=== PATIENT | male | born 1955 | race Caucasian/White ===

== ENCOUNTER 2016-04-07 08:01 | Emergency (ER) | payer OTHER ==
[2016-04-07 08:14] VITALS: BP 134/74
--- NOTE | 2016-04-07 08:46 | UC ---
Respiratory Complaint HPI - HPI Summary HPI Summary: Laryngitis and cough for 3 days no fever - History of Current Complaint Chief Complaint: UCGeneralIllness Stated Complaint: HEAD/CHEST CONGESTION COUGH Time Seen by Provider: 04/07/16 08:45 Hx Obtained From: Patient Onset/Duration: Sudden Onset, Lasting Days - 3, Still Present Timing: Constant Severity Initially: Moderate Severity Currently: Moderate - up all night coughing Character: Cough: Nonproductive Aggravating Factors: Nothing Alleviating Factors: Nothing Associated Signs And Symptoms: Positive: URI, Nasal Congestion - Allergies/Home Medications Allergies/Adverse Reactions: Allergies Allergy/AdvReac Type Severity Reaction Status Date / Time No Known Allergies Allergy Verified 09/24/15 11:13 PMH/Surg Hx/FS Hx/Imm Hx Previously Healthy: No Cardiovascular History Of: Reports: Cardiac Disorders - Dilated Aorta, Hypertension - Surgical History Surgical History: Yes Surgery Procedure, Year, and Place: sx for pyloric stenosis as a child. hernia repair as a child. appendectomy - Family History Known Family History: Positive: Cardiac Disease, Hypertension - Social History Occupation: Employed Full-time Lives: With Family Alcohol Use: Daily Alcohol Amount: 4 drinks a day Substance Use Type: None Smoking Status (MU): Never Smoked Tobacco Amount Used/How Often: SOCIAL SMOKER Have You Smoked in the Last Year: No When Did the Patient Quit Smoking/Using Tobacco: 2012 - Immunization History Most Recent Influenza Vaccination: 2016 Most Recent Tetanus Shot: 09/20/15 Most Recent Pneumonia Vaccination: 2015 Review of Systems Constitutional: Negative Skin: Negative Eyes: Negative ENT: Negative Respiratory: Cough Cardiovascular: Negative Gastrointestinal: Negative Genitourinary: Negative Motor: Negative Neurovascular: Negative Musculoskeletal: Negative Neurological: Negative Psychological: Negative All Other Systems Reviewed And Are Negative: Yes Physical Exam Triage Information Reviewed: Yes Appearance: Well-Appearing, No Pain Distress, Well-Nourished Vital Signs: Initial Vital Signs Temp 98.2 F 04/07/16 08:07 Pulse 81 04/07/16 08:07 Resp 20 04/07/16 08:07 BP 134/74 04/07/16 08:07 Pulse Ox 96 04/07/16 08:07 Vital Signs Reviewed: Yes Eye Exam: Normal Eyes: Positive: Conjunctiva Clear ENT Exam: Normal ENT: Positive: Normal ENT inspection, Hearing grossly normal, Pharynx normal, TMs normal. Negative: Nasal congestion, Nasal drainage, Tonsillar swelling, Tonsillar exudate, Trismus, Muffled/hoarse voice Dental Exam: Normal Neck exam: Normal Neck: Positive: Supple, Nontender, No Lymphadenopathy Respiratory Exam: Other Respiratory: Positive: Chest non-tender, No respiratory distress, No accessory muscle use, Wheezing - expiratory. Negative: Respiratory distress, Accessory muscle use Cardiovascular Exam: Normal Cardiovascular: Positive: RRR, No Murmur, Pulses Normal, Brisk Capillary Refill Musculoskeletal Exam: Normal Musculoskeletal: Positive: Strength Intact, ROM Intact, No Edema Neurological Exam: Normal Neurological: Positive: Alert, Muscle Tone Normal Psychological Exam: Normal Skin Exam: Normal UC Diagnostic Evaluation - Laboratory O2 Sat by Pulse Oximetry: 96 Respiratory Course/Dx - Course Course Of Treatment: albuterol, prednisone, robitussin and codiene, zithromax only if sx worsen or fail to improve increase fluids, follow with pcp re-check prn - Differential Dx/Diagnosis Differential Diagnosis/HQI/PQRI: Asthma, Bronchitis, Lower Resp Infection, Sinusitis, Tuberculosis Provider Diagnoses: Cough with bronchospasm, viral URI Discharge - Discharge Plan Condition: Stable Disposition: HOME Prescriptions: Albuterol HFA INHALER* [Ventolin HFA Inhaler*] 2 puff INH Q6H PRN #1 mdi PRN Reason: cough Azithromycin TAB* [Zithromax TAB (Z-MADHAVI) 250 mg #6 tabs] 2 tab PO .TODAY, THEN 1 DAILY #1 madhavi Spacer/Aerosol-Holding Chamber [Aerochamber Plus] 1 mis .SEE ORDER SEE INSTRUCTIONS #1 mis guaiFENesin/CODIEN 100MG-10MG* [Robitussin AC 100Mg-10Mg*] 5 - 10 ml PO Q4H PRN #120 udc MDD 60 PRN Reason: cough predniSONE TAB* [Deltasone TAB*] 10 mg PO DAILY #20 tab Patient Education Materials: How to Use a Metered-Dose Inhaler (ED), Upper Respiratory Infection (ED), Viral Syndrome (ED), Bronchospasm (ED) Referrals: Noe Allen MD [Primary Care Provider] - If Needed
== END 2016-04-07 09:06 | disposition home or self-care (01) ==
LOC: UCEAST 08:01
DX: R05 Cough (principal); J98.01 Acute bronchospasm; J06.9 Acute upper respiratory infection, unspecified; F10.99 Alcohol use, unspecified with unspecified alcohol-induced disorder; Z72.0 Tobacco use
CPT/HCPCS: 99201; G0463

== ENCOUNTER 2018-05-28 20:22 | Emergency (ER) | payer OTHER ==
[2018-05-28 20:55] VITALS: BP 175/95
--- OUTSIDE RECORDS SUMMARY | 2018-05-28 21:00 | XMS REPORT | Continuity of Care Document ---
:1955 External Reference #:[id number] Author Name Shelia Howell Care Team Providers Name Role Phone Noe Allen MD Primary Care Physician Unavailable Payers Date Identification Numbers Payment Provider Subscriber Policy Number: [id number] [employer] Name: [id number] [id number] PayID: [id number] [place] [address] Expires: 2016 Policy Number: [employer] [facility] Tomy Arrington [id number] Group Number: [id number] [address] PayID: [id number] [place] [address] Advance Directives Description No Information Available Problems Date Description Provider Status Onset: 04/28/2015 Essential hypertension Brinda Levine M.D. Active Onset: 02/04/2012 Syncope and collapse Brinda Levine M.D. Active Onset: 07/11/2017 Obstructive sleep apnea syndrome Kera Ashby DNP, MORENITA, Active [employer] Note: CPAP since June 2017 Onset: 02/04/2012 Electrocardiogram abnormal Brinda Levine M.D. Active Onset: 02/04/2012 Hyperlipidemia Brinda Levine M.D. Active Onset: 12/24/2013 Aortic aneurysm Brinda Levine M.D. Active Note: sees Dr Levine annually as of 2017 Onset: 04/24/2017 Localized, primary osteoarthritis Sai Hawkins MD Active Onset: 07/11/2017 Body mass index 30+ - obesity Kera Ashby DNP, RN, Active [employer] Family History Date Family Member(s) Observation Comments Father heart problems HTN Father due to CHF () Mother Cancer, Breast Mother due to Pancreatic () Cancer Children 2 alive and well Siblings 3 brothers one sister one brother with hypercholesterol and CVA, another brother with MD and CABG +smoker at age of 58, 3rd brother is healthy. Sister bilateral breast cancer. 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[employer]) Tobacco Use Start: Unknown End: Former Cigarette Smoker Unknown Smoking Status Reviewed: 05/06/18 Former Cigarette Smoker ETOH Use Consumes liquor once 200ml of Vodka daily daily Tobacco Use Start: Unknown End: Patient is a former 1-2 years social Unknown smoker Recreational Drug Use Denies Drug Use Exercise Type/Frequency Exercises regularly 30 minutes intense rowing daily 30 minutes of cardio daily Allergies, Adverse Reactions, Alerts Description No Known Drug Allergies Medications Medication Date Status Form Strength Qnty SIG Indications Ordering Provider Lisinopril/Hyd 00// Active Tablets 10-12.5mg 90tab 1 po qd Unknown rochlorothiazi 0000 s de Aspirin / Active Chewtabs 81mg 30uni 1 po qd Unknown Childrens 0000 ts Fish Oil // Active Capsules 1000mg 1 po qd Unknown 0000 Cialis // Active Tablets 2.5mg 30tab po qd (prn) Unknown 0000 s Travatan Z 00/ Active Solution 0.004% 1 gtt right Unknown 0000 eye daily Timolol 00/00/ Active Solution 1 drop in Unknown Maleate 0000 right eye daily Vitamin B-12 00/00/ Active Tablets 500mcg 1 by mouth Unknown 0000 every day Natural Vitamin D High 00/00/ Active Capsules 1000Unit 1 tab po Unknown Potency 0000 daily Atorvastatin / Active Tablets 80mg 1 by mouth Unknown Calcium 0000 every day Suprep Bowel 01/14/ Hx Solution 17.5-3.13 1unit take Madi Ashraf Prep Kit 2017 - -1.6GM/17 s according to Diony 05/05/ 7ML your MD 2019 physician's instructions the day before your procedure. split the dose as directed. Naproxen 04/24/ Hx Tablets 500mg 60tab 1 tablet with M17.11 Sai 2017 - s food by mouth F 07/10/ twice a day Ross 2017 as needed Naproxen 04/01/ Hx Tablets 500mg 90tab 1 po bid prn M75.42 Sai 2016 - s pain F 03/25/ Ross 2017 MD Basilio / Hx Tablets 2.5mg 30tab 1 po qd Unknown 0000 - s 2012 Simvastatin / Hx Tablets 80mg 30tab 1 po qhs Unknown 0000 - s 2017 Potassium / Hx Capsules 8Meq 90cap 1 tab by Other Chloride ER 0000 - ER s mouth every Ordering Provider 2016 Medications Administered in Office Medication Date Status Form Strength Qnty SIG Indications Ordering Provider Depomedrol Administered Injection Iasmar 40MG 018 ROSSANA Gomes Depomedrol Administered Injection Sai F 40MG 018 MD Ross Immunizations Description No Information Available Vital Signs Date Vital Result Comment 05/06/2018 9:37am Height 75 inches 6'3" Weight 260.50 lb Heart Rate 70 /min BP Systolic Sitting 120 mmHg Rue large cuff BP Diastolic Sitting 76 mmHg Rue large cuff Respiratory Rate 18 /min O2 % BldC Oximetry 96 % On Ra BMI (Body Mass Index) 32.6 kg/m2 01/29/2018 9:57am Height 75 inches 6'3" Weight 275.00 lb BP Systolic 134 mmHg BP Diastolic 76 mmHg Respiratory Rate 17 /min Pain Level 4 BMI (Body Mass Index) 34.4 kg/m2 01/09/2018 8:57am Height 75 inches 6'3" Weight 284.25 lb Heart Rate 56 /min BP Systolic 139 mmHg BP Diastolic 81 mmHg Body Temperature 98.6 F Pain Level 0 O2 % BldC Oximetry 95 % BMI (Body Mass Index) 35.5 kg/m2 12/03/2017 3:09pm Height 75 inches 6'3" Weight 289.00 lb W/ Shoes Heart Rate 66 /min BP Systolic Sitting 130 mmHg Lue Large Cuff BP Diastolic Sitting 80 mmHg Lue Large Cuff BMI (Body Mass Index) 36.1 kg/m2 Ejection Fraction 55-60% ECHO 11/10/17 10/21/2017 9:55am Height 75 inches 6'3" Weight 294.38 lb Heart Rate 60 /min BP Systolic Sitting 122 mmHg Rue large cuff BP Diastolic Sitting 76 mmHg Rue large cuff Respiratory Rate 12 /min O2 % BldC Oximetry 96 % BMI (Body Mass Index) 36.8 kg/m2 07/11/2017 9:54am Height 75 inches 6'3" Weight 312.50 lb Heart Rate 70 /min BP Systolic Sitting 138 mmHg Lue large cuff BP Diastolic Sitting 92 mmHg Lue large cuff Respiratory Rate 18 /min O2 % BldC Oximetry 96 % On Ra BMI (Body Mass Index) 39.1 kg/m2 04/28/2017 12:35pm Height 75 inches 6'3" Weight 337.00 lb Heart Rate 80 /min BP Systolic Sitting 130 mmHg BP Diastolic Sitting 86 mmHg Respiratory Rate 20 /min O2 % BldC Oximetry 97 % BMI (Body Mass Index) 42.1 kg/m2 Neck Circumference in inches 18.5 04/24/2017 1:36pm Height 75 inches 6'3" Weight 330.00 lb BP Systolic 116 mmHg BP Diastolic 70 mmHg Respiratory Rate 18 /min Pain Level 5 BMI (Body Mass Index) 41.2 kg/m2 03/26/2017 1:46pm Height 75 inches 6'3" Weight 341.25 lb with shoes Heart Rate 106 /min BP Systolic Sitting 138 mmHg LA, l cuff BP Diastolic Sitting 82 mmHg LA, l cuff BMI (Body Mass Index) 42.6 kg/m2 Ejection Fraction 55%-60% echo 03/14/17 06/12/2016 2:43pm Height 75 inches 6'3" Weight 323.25 lb with shoes Heart Rate 78 /min BP Systolic Sitting 122 mmHg LA lrg cuff BP Diastolic Sitting 86 mmHg LA lrg cuff BMI (Body Mass Index) 40.4 kg/m2 Ejection Fraction 60% -65% echo 10/19/15 04/01/2016 10:30am Height 75 inches 6'3" Weight 316.00 lb Heart Rate 82 /min BP Systolic 124 mmHg BP Diastolic 76 mmHg Pain Level 0 BMI (Body Mass Index) 39.5 kg/m2 11/22/2015 1:58pm Height 75 inches 6'3" Weight 316.25 lb without shoes Heart Rate 88 /min BP Systolic Sitting 128 mmHg LA lg cuff BP Diastolic Sitting 80 mmHg LA lg cuff Respiratory Rate 17 /min BMI (Body Mass Index) 39.5 kg/m2 Ejection Fraction 60-65% date 10/19/15 ECHO 04/28/2015 3:49pm Height 75 inches 6'3" Heart Rate 72 /min BP Systolic Sitting 118 mmHg LA, large BP Diastolic Sitting 80 mmHg LA, large Ejection Fraction 55%-60% 08/19/14 08/03/2014 3:42pm Height 75 inches 6'3" Weight 330.00 lb with shoes Heart Rate 74 /min BP Systolic Sitting 130 mmHg LA, large BP Diastolic Sitting 90 mmHg LA, large BMI (Body Mass Index) 41.2 kg/m2 Ejection Fraction 55%-60% 01/31/14 echo 12/24/2013 10:20am Height 75 inches 6'3" Weight 335.50 lb Heart Rate 80 /min BP Systolic 142 mmHg LA large cuff BP Diastolic 72 mmHg LA large cuff BMI (Body Mass Index) 41.9 kg/m2 05/14/2013 2:31pm Height 75 inches 6'3" Weight 331.00 lb Heart Rate 80 /min BP Systolic Sitting 124 mmHg BP Diastolic Sitting 74 mmHg BMI (Body Mass Index) 41.4 kg/m2 07/17/2012 9:12am Height 75 inches 6'3" Weight 328.00 lb Heart Rate 88 /min BP Systolic Sitting 148 mmHg BP Diastolic Sitting 80 mmHg Respiratory Rate 16 /min BMI (Body Mass Index) 41.0 kg/m2 06/12/2012 10:10am Height 75 inches 6'3" Weight 326.00 lb Heart Rate 82 /min BP Systolic 112 mmHg BP Diastolic 70 mmHg BMI (Body Mass Index) 40.7 kg/m2 04/27/2012 10:28am Height 75 inches 6'3" Weight 325.00 lb Heart Rate 72 /min BP Systolic Sitting 150 mmHg BP Diastolic Sitting 90 mmHg Respiratory Rate 20 /min BMI (Body Mass Index) 40.6 kg/m2 02/04/2012 8:35am Height 75 inches 6'3" Weight 323.00 lb Heart Rate 88 /min BP Systolic 118 mmHg BP Diastolic 72 mmHg BMI (Body Mass Index) 40.4 kg/m2 Results Test Date Facility Test Result H/L Range Note Order [facility] Echocardiogram <pending> 8 [address] [facility] [address] [place] [address] [phone] Testosterone [facility] Testosterone 247 ng/dL N 240 -950 1 Profile 5 [address] [place] [address] [phone] Free Testosterone ng/dl 8.2 ng/dL Abnormal 9-30 2 Bioavailable Testosterone 89 ng/dL N 40-168 3 Lipid Profile 03/28/2014 [facility] Triglycerides 141 mg/dL N 4, 5 (Trig/Chol/HDL) [address] [place] [address] [phone] Cholesterol 174 mg/dL N 6 HDL Cholesterol 52.1 mg/dL N 7 LDL Cholesterol 94 mg/dL N 8 Comp Metabolic Panel 03/28/2014 [facility] Sodium 136 mmol/L N 133-145 [address] [place] [address] [phone] Potassium 4.2 mmol/L N 3.5-5.0 Chloride 101 mmol/L N 101-111 Co2 Carbon Dioxide 28 mmol/L N 22-32 Anion Gap 7 mmol/L N 2-11 Glucose 122 mg/dL High 70-100 Blood Urea Nitrogen 12 mg/dL N 6-24 Creatinine 0.83 mg/dL N 0.67-1.17 BUN/Creatinine Ratio 14.5 N 8-20 Calcium 9.3 mg/dL N 8.6-10.3 Total Protein 6.8 g/dL N 6.4-8.9 Albumin 4.1 g/dL N 3.2-5.2 Globulin 2.7 g/dL N 2-4 Albumin/Globulin Ratio 1.5 N 1-3 Total Bilirubin 0.80 mg/dL N 0.2-1.0 Alkaline Phosphatase 54 U/L N 34-104 Alt 27 U/L N 7-52 Ast 19 U/L N 13-39 Egfr Non- 94.2 N >60 Egfr 121.1 N >60 9 CBC Auto Diff 03/28/2014 [facility] White Blood 5.7 10^3/uL N 4.8-10.[address] [place] [address] [phone] Red Blood Count 4.85 10^6/uL N 4.0-5.4 Hemoglobin 14.8 g/dL N 14.0-18.0 Hematocrit 44 % N 42-52 Mean Corpuscular Volume 92 fL N 80-94 Mean Corpuscular Hemoglobin 31 pg N 27-31 Mean Corpuscular HGB Conc 33 g/dL N 31-36 Red Cell Distribution Width 13 % N 10.5-15 Platelet Count 179 10^3/uL N 150-450 Mean Platelet Volume 9 um3 N 7.4-10.4 Abs Neutrophils 3.0 10^3/uL N 1.5-7.7 Abs Lymphocytes 1.7 10^3/uL N 1.0-4.8 Abs Monocytes 0.6 10^3/uL N 0-0.8 Abs Eosinophils 0.3 10^3/uL N 0-0.6 Abs Basophils 0 10^3/uL N 0-0.2 Abs Nucleated RBC 0 10^3/uL N Granulocyte % 53.6 % N 38-83 Lymphocyte % 30.0 % N 25-47 Monocyte % 10.1 % High 1-9 Eosinophil % 5.7 % N 0-6 Basophil % 0.6 % N 0-2 Nucleated Red Blood Cells % 0.1 N 1 ADDITIONAL INFORMATION Testing performed by Liquid Chromatography-Tandem Mass Spectrometry (LC-MS/MS). 2 ADDITIONAL INFORMATION Testing performed by Equilibrium Dialysis. 3 ADDITIONAL INFORMATION Testing performed by Differential Precipitation. Test Performed by: [facility] [address] [address] Radiotelegrapher: Ra Joyce M.D. 4 FASTING 5 Desirable <150 Borderline high 150-199 High 200-499 Very High >500 6 Desirable <200 Borderline high 200-239 High >239 7 Low <40 Desirable: 40-60 High: >60 8 Desirable <100 Near Optimal 100-129 Borderline high 130-159 High 160-189 Very High >189 9 Because ethnic data is not always readily available, this report includes an eGFR for both -Americans and non- Americans. The National Kidney Disease Education Program (NKDEP) does not endorse the use of the MDRD equation for patients that are not between the ages of 18 and 70, are , have extremes of body size, muscle mass, or nutritional status, or are non- or non-. According to the National Kidney Foundation, irrespective of diagnosis, the stage of the disease is based on the level of kidney function: Stage Description GFR(mL/min/1.73 m(2)) 1 Kidney damage with normal or decreased GFR 90 2 Kidney damage with mild decrease in GFR 60-89 3 Moderate decrease in GFR 30-59 4 Severe decrease in GFR 15-29 5 Kidney failure <15 (or dialysis) Procedures Date Code Description Status 02/13/2018 32972914 Colonoscopy Completed 12/03/2017 56250 EKG Tracing & Interpretation Completed 11/10/2017 48793 ECHO Transthoracic, Real-Time 2D With Doppler And Color Completed Flow 11/10/2017 30036 ECHO Transthoracic, Real-Time 2D With Doppler And Color Completed Flow 05/07/2017 61319 Sleep Study Unattended,HRT Rate,Oxygen Sat,Resp Completed Effort/Airflow 04/29/2017 76739 ECHO Stress Test Incl Perf Contiuous ekg Monitoring Completed W/Phys Superv 04/24/2017 67847 Inject/Drain Joint/Bursa Major W/O US Completed 03/26/2017 73864 EKG Tracing & Interpretation Completed 03/14/2017 45969 ECHO Transthoracic, Real-Time 2D With Doppler And Color Completed Flow 03/14/2017 81841 ECHO Transthoracic, Real-Time 2D With Doppler And Color Completed Flow 06/12/2016 15273 EKG Tracing & Interpretation Completed 11/22/2015 02682 EKG Tracing & Interpretation Completed 10/19/2015 51813 ECHO Transthoracic, Real-Time 2D With Doppler And Color Completed Flow 04/28/2015 47910 EKG Tracing & Interpretation Completed 08/19/2014 49323 ECHO Transthoracic, Real-Time 2D With Doppler And Color Completed Flow 08/03/2014 03505 EKG Tracing & Interpretation Completed 12/24/2013 00438 EKG Tracing & Interpretation Completed 05/14/2013 60691 EKG Tracing & Interpretation Completed 07/09/2012 83018 Treadmill Interp/Report Only Completed 07/09/2012 90989 Stress Test Supervsn W/Out I/R Completed 06/30/2012 48595 Holter Monitoring 24 HR New Completed 06/12/2012 09330 EKG Tracing & Interpretation Completed 04/28/2012 [id number] Colonoscopy Completed 04/27/2012 03082 ECHO Transthoracic, Real-Time 2D With Doppler And Color Completed Flow 03/31/2012 86340 ECHO Stress Test Incl Perf Contiuous ekg Monitoring Completed W/Phys Superv 03/31/2012 41968 ECHO Stress Test Incl Perf Contiuous ekg Monitoring Completed W/Phys Superv 02/04/2012 29958 EKG Tracing & Interpretation Completed Encounters Type Date Location Provider Dx Diagnosis Office Visit 01/29/2018 Orthopedic Sai F M17.12 Unilateral primary 9:45a Services Of Saumya Hawkins MD osteoarthritis, left knee M25.562 Pain in left knee Office Visit 01/09/2018 [facility] Gastroenterology Madi Ashraf G47.33 Obstructive 8:30a MD Diony sleep apnea (adult) (pediatric) 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 Z68.36 Body mass index (BMI) 36.0-36.9, adult Office Visit 12/03/2017 Bertin Ferreira G47.33 Obstructive sleep 3:20p Cardiology Edgar Levine apnea (adult) (pediatric) E66.9 Obesity, unspecified I10 Essential (primary) hypertension I71.9 Aortic aneurysm of unspecified site, without rupture I44.0 Atrioventricular block, first degree R94.31 Abnormal electrocardiogram [ECG] [EKG] E78.5 Hyperlipidemia, unspecified Office Visit 10/21/2017 Pulmonology And Kera G47.33 Obstructive sleep 9:45a Sleep Services Of EULOGIO Ashby RN, apnea (adult) [facility] DERREK-RUDOLPH (pediatric) Z68.36 Body mass index (BMI) 36.0-36.9, adult Office Visit 07/11/2017 Pulmonology And Kera G47.33 Obstructive sleep 9:45a Sleep Services Of EULOGIO Ashby RN, apnea (adult) [facility] DERREK-BC (pediatric) R09.02 Hypoxemia Z68.39 Body mass index (BMI) 39.0-39.9, adult Office Visit 04/28/2017 1:00p Pulmonology And Sleep Eleni Su, R06.83 Snoring Services Of Luis RIDDLE E66.9 Obesity, unspecified Z68.41 Body mass index (BMI) 40.0-44.9, adult Office Visit 04/24/2017 Orthopedic Sai F M17.11 Unilateral primary 1:00p Services Of MD Ross osteoarthritis, C.M.A. right knee M17.12 Unilateral primary osteoarthritis, left knee M17.0 Bilateral primary osteoarthritis of knee S80.01xA Contusion of right knee, initial encounter Office Visit 03/26/2017 2:00p Alpha Qutaybeh S. I71.9 Aortic aneurysm Cardiology Edgar Levine of unspecified site, without rupture I10 Essential (primary) hypertension E78.4 Other hyperlipidemia E66.01 Morbid (severe) obesity due to excess calories G47.9 Sleep disorder, unspecified R06.02 Shortness of breath Office Visit 06/12/2016 3:00p Alpha Qutaybeh S. I71.9 Aortic aneurysm Cardiology Edgar Levine of unspecified site, without rupture I10 Essential (primary) hypertension E78.4 Other hyperlipidemia E66.01 Morbid (severe) obesity due to excess calories Office Visit 04/01/2016 10:00a Orthopedic Sai F S46.012A Strain of Services Of MD Ross musc/tend the C.M.A. rotator cuff of left shoulder, init M75.42 Impingement syndrome of left shoulder Office Visit 11/22/2015 2:00p Alpha Qutaybeh S. I71.9 Aortic aneurysm Cardiology Edgar Levine of unspecified site, without rupture I10 Essential (primary) hypertension E78.4 Other hyperlipidemia E66.01 Morbid (severe) obesity due to excess calories Office Visit 04/28/2015 3:40p Alpha Qutaybeh S. I71.9 Aortic aneurysm Cardiology Edgar Levine of unspecified site, without rupture E78.4 Other hyperlipidemia I10 Essential (primary) hypertension E66.01 Morbid (severe) obesity due to excess calories Office Visit 08/03/2014 Alpha Quwoodyybeh S. 401.1 Hypertension 3:40p Cardiology Edgar Levine Benign 272.4 Hyperlipidemia Other Unspec 278.01 Obesity Morbid 441.9 Aneurysm Aortic W/O Rupture Unspec Site Office Visit 12/24/2013 Alpha Qutaybeh S. 401.1 Hypertension 10:20a Norman Levine M.D. Benign 278.01 Obesity Morbid 272.4 Hyperlipidemia Other Unspec 780.4 Dizziness & Giddiness 441.9 Aneurysm Aortic W/O Rupture Unspec Site Office Visit 05/14/2013 Alpha Qutaybeh S. 401.1 Hypertension 2:40p Norman Levine M.D. Benign 278.01 Obesity Morbid 272.4 Hyperlipidemia Other Unspec 794.31 Electrocardiogram (ECG) (EKG) Abnormal Office Visit 07/17/2012 Alpha Qutaybeh S. 401.1 Hypertension 9:20a Norman Levine M.D. Benign 780.2 Syncope & Collapse 278.01 Obesity Morbid 272.4 Hyperlipidemia Other Unspec Office Visit 07/09/2012 8:30a Bertin Parry S. 780.2 Syncope & Edgar Levine Collapse 794.31 Electrocardiogram (ECG) (EKG) Abnormal 401.1 Hypertension Benign 272.4 Hyperlipidemia Other Unspec Office Visit 06/12/2012 Alpha Qutaybeh S. 401.1 Hypertension 10:20a Norman Levine M.D. Benign 794.31 Electrocardiogram (ECG) (EKG) Abnormal 272.4 Hyperlipidemia Other Unspec 278.01 Obesity Morbid Office Visit 04/27/2012 Alpha Qutaybeh S. 401.1 Hypertension 10:40a Norman Levine M.D. Benign 272.4 Hyperlipidemia Other Unspec 794.31 Electrocardiogram (ECG) (EKG) Abnormal 278.01 Obesity Morbid Office 03/31/2012 Alpha Qutaybeh S. 794.31 Electrocardiogram Visit 2:45p Norman Levine M.D. (ECG) (EKG) Abnormal 401.1 Hypertension Benign 780.2 Syncope & Collapse 780.4 Dizziness & Giddiness Office 02/04/2012 Alpha Qutaybeh S. 794.31 Electrocardiogram Visit 9:00a Norman Levine M.D. (ECG) (EKG) Abnormal 401.1 Hypertension Benign 272.4 Hyperlipidemia Other Unspec 780.2 Syncope & Collapse 780.4 Dizziness & Giddiness 278.01 Obesity Morbid Plan of Treatment 05/06/2018 - Linda Unger, NPG47.33 Obstructive sleep apnea (adult) ( pediatric)Z68.32 Body mass index (BMI) 32.0-32.9, adultRecommendations: Congratulations on your 60 lb weight loss! Keep up the good work.
== END 2018-05-28 22:13 | disposition left against medical advice (07) ==
LOC: ED 20:22
DX: R51 Headache (principal); Z53.21 Procedure and treatment not carried out due to patient leaving prior to being seen by health care provider

== ENCOUNTER 2018-05-29 07:54 | Emergency (ER) | payer OTHER ==
[2018-05-29] MEDS ORDERED: Metoprolol Tartrate IV* 1 MG/ML 5 ML VIAL IV ONE (08:22)
[2018-05-29] MEDS ORDERED: Metoclopramide IV* 5 MG/ML 2 ML VIAL IV SLOW PU ONE (08:24)
[2018-05-29] MEDS ORDERED: diPHENhydraMINE IV* 50 MG/ML 1 ml VIAL (BENADRYL) SLOW PUSH ONE (08:24)
--- NOTE | 2018-05-29 08:49 | ED ---
Headache - HPI Summary HPI Summary: Pt is a 63 y/o M presenting to the ED with a chief complaint of a headache suddenly onset last night around 1900 rated at 9/10 and located on his temples. He states It feels like my brain wants to break out of my cranium. He reports headache with associated neck soreness that is worse with movement, pain behind his eyes that is worse with movement, weakness, nausea, abd pain, feeling warm, and diaphoresis. Pt denies any chills, photophobia or erythema of eyes, sore throat, CP, SOB, cough, vomiting, dysuria, hematuria, myalgia, edema, rash, or dizziness.Hes not prone to headaches, and he denies any head injury, fall, MVA , or being around anyone who has been sick. He did fall on his dock a couple of years ago and broke a few vertebrae. He has no fhx of aneurysms that he knows of , but his dad who was a smoker has a hx of cardiac issues. He has a pmhx of dilated aorta, HLD, and HTN. He does not smoke. He drinks approximately 200ml of vodka daily before dinner. His blood pressure usually runs between 125/70-135 /75, and it used to be higher but he has lost over 70lbs through [facility] and daily high intensity exercise. - History Of Current Complaint Chief Complaint: EDHeadache Stated Complaint: SPLITTING HEADACHE GOES DOWN MY NECK PER PT Time Seen by Provider: 05/29/18 08:05 Hx Obtained From: Patient Onset/Duration: Sudden Onset, Started hours ago, Still Present Initially Headache Was: Severe Currently Pain Is: Severe Timing: Constant, Hours Character: Sharp Location of Headache: Temporal Radiates to: neck Aggravating Factor: Other - eye movement Allevating Factors: Nothing Associated Signs And Symptoms: Nausea, Fever, Neck Pain, Neck Stiffness - Allergies/Home Medications Allergies/Adverse Reactions: Allergies Allergy/AdvReac Type Severity Reaction Status Date / Time No Known Allergies Allergy Verified 05/29/18 07:55 PMH/Surg Hx/FS Hx/Imm Hx Previously Healthy: Yes Endocrine/Hematology History: Denies: Hx Diabetes Cardiovascular History: Reports: Hx Hypercholesterolemia, Hx Hypertension, Other Cardiovascular Problems/Disorders - dilated aorta - Surgical History Surgery Procedure, Year, and Place: sx for pyloric stenosis as a child. hernia repair as a child. appendectomy Infectious Disease History: No Infectious Disease History: Denies: History Other Infectious Disease, Traveled Outside the [place] in Last 30 Days - Family History Known Family History: Positive: Cardiac Disease, Hypertension Negative: Other - aneurysm - Social History Occupation: Employed Full-time Alcohol Use: Daily Alcohol Amount: 200ml Vodka and 1 glass of wine/beer Hx Substance Use: No Substance Use Type: Reports: None Hx Tobacco Use: No Smoking Status (MU): Never Smoked Tobacco Amount Used/How Often: [employer] Have You Smoked in the Last Year: No Review of Systems Positive: Fever, Skin Diaphoresis. Negative: Chills Positive: Other - pain behind eyes. Negative: Photophobia, Erythema Positive: Other - neck pain/soreness. Negative: Sore Throat Negative: Chest Pain Negative: Shortness Of Breath, Cough Positive: Abdominal Pain, Nausea. Negative: Vomiting Negative: dysuria, hematuria Negative: Myalgia Negative: Rash Neurological: Negative - dizziness Positive: Headache, Weakness All Other Systems Reviewed And Are Negative: Yes Physical Exam - Summary Physical Exam Summary: Constitutional: Well-developed, Well-nourished, Alert. (-) Distressed Skin: Warm, Dry HENT: Normocephalic; Atraumatic Eyes: Conjunctiva normal Neck: Musculoskeletal ROM normal neck. (-) JVD, (-) Stridor, (-) Tracheal deviation Cardio: Rhythm regular, rate normal, Heart sounds normal; Intact distal pulses; The pedal pulses are 2+ and symmetric. Radial pulses are 2+ and symmetric. (-) Murmur Pulmonary/Chest wall: Effort normal. (-) Respiratory distress, (-) Wheezes, (-) Rales Abd: Soft. (-) Tenderness, (-) Distension, (-) Guarding, (-) Rebound Musculoskeletal: (-) Edema Lymph: (-) Cervical adenopathy Neuro: Alert, Oriented x3, Strength normal, Cranial nerves II-XII are grossly intact. Mild bilateral dysmetria, probably related to HTN and chronic alcohol use, (-) Nystagmus, (-) Ataxia by finger to nose testing, (-) Sensory deficit. Psych: Mood and affect Normal GCS: 15 Triage Information Reviewed: Yes Vital Signs On Initial Exam: Initial Vitals Temp Pulse Resp BP Pulse Ox 97.1 F 73 16 183/92 97 05/29/18 07:55 05/29/18 07:55 05/29/18 07:55 05/29/18 07:55 05/29/18 07:55 Vital Signs Reviewed: Yes Diagnostics - Vital Signs Vital Signs Temp Pulse Resp BP Pulse Ox 05/29/18 08:11 68 179/95 94 05/29/18 07:55 97.1 F 73 16 183/92 97 - Laboratory Result Diagrams: 05/29/18 08:45 05/29/18 08:45 Lab Statement: Any lab studies that have been ordered have been reviewed, and results considered in the medical decision making process. - CT Brain CT CT Interpretation Completed By: Radiologist Summary of CT Findings: 1. ANEURYSMAL PATTERN OF SUBARACHNOID HEMORRHAGE. 2. THERE IS MILD VENTRICULOMEGALY WITH A SMALL AMOUNT OF BLOOD WITHIN THE RIGHT LATERAL VENTRICLE, SUGGESTIVE OF EARLY HYDROCEPHALUS. ED physician has reviewed this report. - EKG 0837 Cardiac Rate: NL - 70bpm EKG Rhythm: Sinus Rhythm ST Segment: Normal Ectopy: None Summary of EKG Findings: Prolonged ND interval. L axis deviation. No STEMI. Re-Evaluation - Re-Evaluation First Eval Re-Evaluation Time: 10:00 Change: Unchanged - bp improved Second Eval Re-Evaluation Time: 10:45 Change: Improved - bp stable, son informed of clinical scenario, informed about extra mileage possible extra charge Headache Course/Dx - Course Course Of Treatment: Pt is a 63 y/o M presenting to the ED with a chief complaint of a headache suddenly onset last night around 1900 rated at 9/10 and located on his temples. He states It feels like my brain wants to break out of my cranium. He reports headache with associated neck soreness that is worse with movement, pain behind his eyes that is worse with movement, weakness, nausea, abd pain, feeling warm, and diaphoresis. Pt denies any chills, photophobia or erythema of eyes, sore throat, CP, SOB, cough, vomiting, dysuria , hematuria, myalgia, edema, rash, or dizziness. He has a pmhx of dilated aorta , HLD, and HTN. He does not smoke. He drinks approximately 200ml of vodka daily before dinner. His blood pressure usually runs between 125/70-135/75, and it used to be higher but he has lost over 70lbs through [facility] program and daily high intensity exercise. An EKG at 0837 shows NSR 70bpm with prolonged ND interval, L axis deviation, but no STEMI. Brain CT shows 1. ANEURYSMAL PATTERN OF SUBARACHNOID HEMORRHAGE. 2. THERE IS MILD VENTRICULOMEGALY WITH A SMALL AMOUNT OF BLOOD WITHIN THE RIGHT LATERAL VENTRICLE, SUGGESTIVE OF EARLY HYDROCEPHALUS. Dr. Marx at [facility] will be accepting the pt for admission. He will be air lifted, and is agreeable with this plan. - Diagnoses Provider Diagnoses: Aneurysmal subarachnoid hemorrhage - Critical Care Time Critical Care Time: 75-104 min Discharge - Sign-Out/Discharge Documenting (check all that apply): Patient Departure - Discharge Plan Condition: Guarded Disposition: TRANS HIGHER LVL OF CARE FAC Referrals: Noe Allen MD [Primary Care Provider] - - Billing Disposition and Condition Condition: GUARDED Disposition: Trans Higher Lvl of Care Fac - Attestation Statements Document Initiated by Scribe: Yes Documenting Scribe: Kylie Avila Provider For Whom Scribe is Documenting (Include Credential): Lenny Fernandez MD. Scribe Attestation: Kylie Cordero, raúlibed for Lenny Fernandez MD. on 05/29/18 at 1104. Scribe Documentation Reviewed: Yes Provider Attestation: The documentation as recorded by the scribe, Kylie Avila accurately reflects the service I personally performed and the decisions made by me, Lenny Fernandez MD. Status of Scribe Document: Viewed Consult Consult: 1033 - Spoke with Dr. Marx who will be the accepting physician at [facility].
[2018-05-29 09:02] LABS: ABS Basophils 0 10^3/ul (0-0.2); ABS Eosinophils 0.1 10^3/ul (0-0.6); ABS Monocytes 0.6 10^3/ul (0-0.8); ABS Neutrophils 4.2 10^3/ul (1.5-7.7); ABS Nucleated RBC 0 10^3/ul; Eosinophil % 1.4 %; Hematocrit 41 % (36-46); Hemoglobin 14.2 g/dL (14.0-18.0); Lymphocyte % 17.3 %; Mean Corpuscular HGB Conc 34 g/dL (31-36); Mean Corpuscular Hemoglobin 32 pg (27-31); Mean Corpuscular Volume 92 fL (80-94); Mean Platelet Volume 9.2 fL (7.4-10.4); Nucleated Red Blood Cells % 0; Platelet Count 184 10^3/uL (150-450); Red Cell Distribution Width 13 % (10.5-15); White Blood Count 5.9 10^3/uL (3.5-10.8)
[2018-05-29 09:06] LABS: INR 0.92 (0.77-1.02)
[2018-05-29 09:12] LABS: ALT 19 U/L (7-52); AST 18 U/L (13-39); Albumin/Globulin Ratio 1.7 (1-3); Alkaline Phosphatase 53 U/L (34-104); Anion Gap 9 mmol/L (2-11); BUN/Creatinine Ratio 12.5 (8-20); Blood Urea Nitrogen 7 mg/dL (6-24); CO2 Carbon Dioxide 26 mmol/L (22-32); Calcium 9.8 mg/dL (8.6-10.3); Chloride 97 mmol/L (101-111); EGFR African American 177.2 (>60); EGFR Non-African American 146.4 (>60); Globulin 2.3 g/dL (2-4); Glucose 114 mg/dL (70-100); Potassium 4.2 mmol/L (3.5-5.0); Sodium 132 mmol/L (135-145); Total Protein 6.3 g/dL (6.4-8.9); Troponin I 0.01 ng/mL (<0.04)
[2018-05-29] MEDS ORDERED: hydrALAZINE IV* 20 MG/ML VIAL IV SLOW PU ONE (09:31)
[2018-05-29 09:52] LABS: C Reactive Protein < 1.00 mg/L (<8.01)
[2018-05-29] MEDS ORDERED: Morphine 4 MG/ML VIAL (1 ml) 4 MG/ML VIAL IV ONE (10:18)
[2018-05-29] MEDS ORDERED: Ondansetron INJ* 2 MG/ML VIAL IV ONE (10:18)
[2018-05-29 10:20] LABS: Alcohol < 10 mg/dL (<10)
[2018-05-29 10:57] VITALS: BP 148/75
== END 2018-05-29 11:17 | disposition short-term general hospital (02) ==
LOC: ED 07:54
DX: I60.9 Nontraumatic subarachnoid hemorrhage, unspecified (principal); I10 Essential (primary) hypertension; R11.0 Nausea; R50.9 Fever, unspecified; M54.2 Cervicalgia; M43.6 Torticollis; R10.9 Unspecified abdominal pain; R61 Generalized hyperhidrosis; I77.819 Aortic ectasia, unspecified site; E78.00 Pure hypercholesterolemia, unspecified; Z72.0 Tobacco use
CPT/HCPCS: 36415; 70450; 80053; 80320; 83605; 84484; 85025; 85610; 86140; 87040; 93005; 96374; 96375; 99284; G0480; J0360; J1200; J2270; J2405; J2765; J3490